=== PATIENT | female | born 1980 | race Caucasian/White ===

== ENCOUNTER → 2018-02-10 09:13 | Outpatient (CLI) | payer OTHER, SELFPAY ==
[2018-02-10 10:16] LABS: HCG Quantitative /Beta subunit 18.71 mIU/mL
== END ==
PROVIDERS: Family Provider Obstetrics & Gynecology; PCP Obstetrics & Gynecology; Visit Provider Obstetrics & Gynecology Reproductive Endocrinology
DX: Z32.00 Encounter for pregnancy test, result unknown (principal)
CPT/HCPCS: 36415; 84702

== ENCOUNTER → 2018-02-12 09:37 | Outpatient (CLI) | payer OTHER, SELFPAY ==
[2018-02-12 10:28] LABS: HCG Quantitative /Beta subunit 7.99 mIU/mL
== END ==
PROVIDERS: Family Provider Obstetrics & Gynecology; PCP Obstetrics & Gynecology; Visit Provider Obstetrics & Gynecology Reproductive Endocrinology
DX: Z32.01 Encounter for pregnancy test, result positive (principal)
CPT/HCPCS: 36415; 84702

== ENCOUNTER → 2018-08-18 09:20 | Outpatient (CLI) | payer OTHER, SELFPAY ==
[2018-08-18 10:08] LABS: HCG Quantitative /Beta subunit < 2.39 mIU/mL
== END ==
PROVIDERS: PCP Family Medicine; Visit Provider Obstetrics & Gynecology Reproductive Endocrinology
DX: Z32.00 Encounter for pregnancy test, result unknown (principal)
CPT/HCPCS: 36415; 84702